=== PATIENT | male | born 1980 | race Caucasian/White ===

== ENCOUNTER 2022-07-09 08:40 | Emergency (ER) | payer OTHER, SELFPAY ==
[2022-07-09 08:44] VITALS: BP 142/84; PULSE 86; RESP 16; TEMP 36.4; O2SAT 97
--- NOTE | 2022-07-09 09:03 | ED.EAR ---
HPI - Ear Problem General Chief complaint: Ear Stated complaint: Ear Pain Time Seen by Provider: 07/09/22 08:55 Source: patient, RN notes reviewed and old records reviewed Mode of arrival: ambulatory Limitations: no limitations History of Present Illness HPI Narrative: 41 year old male who presents to [facility] care with complaints of right ear pain for 1 week duration with increased pain the past 24 hours which does radiate some down his right jaw. Patient does have a history of seasonal allergies and does take Claritin daily, he has taken Tylenol for his discomfort. 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 Patient has been vaccinated for COVID and flu and also has had in the past. MD Complaint: ear pain and other (tinnitis) Location: bilateral Duration: constant Severity: moderate Discharge from ear: Reports no Treatment prior to arrival: oral analgesic and other (Daily claritin) Related Data Allergies Allergy/AdvReac Type Severity Reaction Status Date / Time Penicillins Allergy Unknown Unknown Verified 07/09/22 09:00 Review of Systems Review of Systems: CONSTITUTIONAL: Denies malaise, chills, sweats, or fever. EYES: Denies visual changes, redness, or discharge. ENT: Denies rhinorrhea, congestion, sinus pain, bilateral otalgia no sore throat. CARDIOVASCULAR: Denies chest pain, palpitations, or edema. RESPIRATORY: Denies cough.? Denies dyspnea. GASTROINTESTINAL: Denies abdominal pain, nausea, vomiting, diarrhea SKIN: Denies rash or itching. MUSCULOSKELETAL: Denies myalgia. NEUROLOGIC: Denies headache. All systems reviewed & are unremarkable except as noted in HPI and below PMFSH Comments At time of signature, agree with nursing past medical, surgical, social and family history. There is no relevant family history pertinent to the presenting complaint Exam Narrative: GENERAL: Well-appearing, well-nourished, and in no acute distress. HEAD: Normocephalic EYES: PERRLA, conjunctivae clear ENT: Nares clear, turbinates edematous and pink, no discharge. Mucous membranes moist. TM pearly borja with dull light reflex bilaterally, canals red with no drainage, right tragal tenderness. Oropharynx pink without lesions. Tonsils not enlarged and without exudate, no drooling, no hoarseness, no trismus, uvula midline. NECK: Supple. No lymphadenopathy CHEST: Clear to auscultation, breath sounds equal. No wheezing, rhonchi, rales, or stridor. No respiratory distress, speaks in full sentences.SAO2 97% on room air HEART: Regular rate and rhythm. No murmur heard. SKIN: Warm, dry, no rash. NEURO: Alert and oriented x3. PSYCH: Normal mood and affect Course Course Emergency Course: Patient is aware of diagnosis, understands and agrees to treatment plan.? Anticipatory guidance given.? Patient agrees to follow-up as directed and is aware of reasons to seek care at the emergency department. Portions of this record may have been created with voice recognition software Level of Care: Express Care Visit Vital Signs Vital signs: Vital Signs Temperature 36.4 C 07/09/22 08:44 Pulse Rate 86 07/09/22 08:44 Respiratory Rate 16 07/09/22 08:44 Blood Pressure 142/84 H 07/09/22 08:44 Pulse Oximetry 97 07/09/22 08:44 Oxygen Delivery Room Air 07/09/22 08:44 Temperature 36.4 C 07/09/22 08:44 Pulse Rate 86 07/09/22 08:44 Respiratory Rate 16 07/09/22 08:44 Blood Pressure 142/84 H 07/09/22 08:44 Pulse Oximetry 97 07/09/22 08:44 Oxygen Delivery Room Air 07/09/22 08:44 Reviewed Medical Decision Making Differential Diagnosis Differential Diagnosis: otitis media, otitis externa, URI, viral syndrome Medical Records Medical records reviewed: Yes I reviewed the external patient's medical records. Vital Signs Vital Signs: Vital Signs Temperature 36.4 C 07/09/22 08:44 Pulse Rate 86 07/09/22 08:44 Respiratory Rate 16
== END 2022-07-09 09:20 | disposition home or self-care (01) ==
PROVIDERS: Emergency Provider Registered Nurse
DX: H60.313 Diffuse otitis externa, bilateral (principal); Z86.16 Personal history of COVID-19
CPT/HCPCS: 99203; G0463